=== PATIENT | female | born 1940 | race Caucasian/White ===

== ENCOUNTER 2021-09-15 14:14 | Emergency (ER) | payer OTHER, MEDICARE, BC | END 2021-09-15 16:19 | disposition home or self-care (01) | LOC: CSHERS 14:14 | DX: S00.83XA Contusion of other part of head, initial encounter (principal); S80.212A Abrasion, left knee, initial encounter; W01.0XXA Fall on same level from slipping, tripping and stumbling without subsequent striking against object, initial encounter; I48.91 Unspecified atrial fibrillation; I25.2 Old myocardial infarction; I10 Essential (primary) hypertension; E78.5 Hyperlipidemia, unspecified; E78.00 Pure hypercholesterolemia, unspecified; Z86.73 Personal history of transient ischemic attack (TIA), and cerebral infarction without residual deficits; Z79.82 Long term (current) use of aspirin; Z79.01 Long term (current) use of anticoagulants | CPT/HCPCS: 70450; 70486; 72125 ==

== ENCOUNTER 2022-06-19 10:31 | Outpatient (CLI) | payer MEDICARE, BC | END 2022-06-19 10:32 | disposition home or self-care (01) | LOC: CSHRAD 10:31 | PROVIDERS: ATTEND Anesthesiology | DX: M47.814 Spondylosis without myelopathy or radiculopathy, thoracic region (principal); M51.34 Other intervertebral disc degeneration, thoracic region; M47.817 Spondylosis without myelopathy or radiculopathy, lumbosacral region; M47.816 Spondylosis without myelopathy or radiculopathy, lumbar region | CPT/HCPCS: 72070; 72100 ==

== ENCOUNTER 2022-07-03 13:57 | Outpatient (CLI) | payer MEDICARE, BC | END 2022-07-03 13:58 | disposition home or self-care (01) | LOC: CSHRAD 13:57 | PROVIDERS: ATTEND Nurse Practitioner Family | DX: M54.2 Cervicalgia (principal); R22.1 Localized swelling, mass and lump, neck; K22.9 Disease of esophagus, unspecified; M47.812 Spondylosis without myelopathy or radiculopathy, cervical region | CPT/HCPCS: 70360 ==

== ENCOUNTER 2023-08-20 10:28 | Outpatient (CLI) | payer MEDICARE, BC | END 2023-08-20 10:29 | disposition home or self-care (01) | LOC: CSHMAMMO 10:28 | PROVIDERS: ATTEND Internal Medicine | DX: Z53.9 Procedure and treatment not carried out, unspecified reason (principal) ==

== ENCOUNTER 2024-09-07 13:33 | Outpatient (CLI) | payer MEDICARE | END 2024-09-07 13:34 | disposition home or self-care (01) | LOC: CSHMAMMO 13:33 | PROVIDERS: ATTEND Internal Medicine | DX: Z12.31 Encounter for screening mammogram for malignant neoplasm of breast (principal); M81.0 Age-related osteoporosis without current pathological fracture; M85.88 Other specified disorders of bone density and structure, other site | CPT/HCPCS: 77063; 77067; 77080 ==

== ENCOUNTER 2025-09-27 13:33 | Outpatient (CLI) | payer MEDICARE | END 2025-09-27 13:34 | disposition home or self-care (01) | LOC: CSHMAMMO 13:33 | PROVIDERS: ATTEND Internal Medicine | DX: Z12.31 Encounter for screening mammogram for malignant neoplasm of breast (principal) | CPT/HCPCS: 77063; 77067 ==